=== PATIENT | male | born 1970 | race Caucasian/White ===

== ENCOUNTER 2017-05-03 14:20 | Emergency (ER) | payer OTHER ==
[~2017-05-03] VITALS: Ht 185.4 cm; Wt 111.3 kg
[2017-05-03 14:31] VITALS: BP 139/99
== END 2017-05-03 18:44 | disposition home or self-care (01) ==
LOC: EME 14:20
PROC: 3E0T3BZ Introduction of Anesthetic Agent into Peripheral Nerves and Plexi, Percutaneous Approach (ICD-10-PCS; principal; 2017-05-03)
DX: S02.5XXA Fracture of tooth (traumatic), initial encounter for closed fracture (principal); W01.198A Fall on same level from slipping, tripping and stumbling with subsequent striking against other object, initial encounter
CPT/HCPCS: 99281; 99283; S0020